=== PATIENT | male | born 1930 | race Caucasian/White ===

== ENCOUNTER 2017-04-03 09:52 | Observation (INO) ==
[2017-04-03 11:25] LABS: Basophils % 0.2 % (0.0-0.8); Eosinophils # 0.1 10*3/uL (0.0-0.87); Eosinophils % 1.1 % (0.00-10.9); Hematocrit 39.9 VOL% (42.0-52.0); Hemoglobin 13.4 GM/DL (14.0-18.0); Immature Granulocytes % 0.4 %; Immature Granulocytes Absolute 0.02 #; Lymphocytes # 1.2 10*3/uL (1.4-4.0); Lymphocytes % 22.6 % (21.2-54.2); Mean Corpuscular HGB Conc 33.6 GM/DL (32-36); Mean Corpuscular Hemoglobin 33 PG (27-34); Mean Platelet Volume 9.8 FL (9.6-12.0); Monocytes # 0.5 10*3/uL (0.11-0.8); Monocytes % 9.5 % (1.7-12.7); Neutrophils # 3.6 10*3/uL (1.4-7.4); Neutrophils % 66.2 % (38.7-73.9); Platelet Count 118 T/CUMM (130-400); Red Blood Count 4.07 MC/CUMM (3.8-5.5); Red Cell Distribution Width 13.2 % (9.3-17.3); White Blood Count 5.4 T/CUMM (4-12)
[2017-04-03 11:36] LABS: INR 1.1; PT Patient Result 11.3 SECS; Partial Thromboplastin Time 28.8 SECS (0-40)
[2017-04-03 12:01] LABS: Albumin 3.7 G/DL (3.4-5.0); Bilirubin,Total 0.5 MG/DL (0.2-1.0); Calcium 8.8 MG/DL (8.5-10.1); Osmolality,Calculated 275.8 MOS/KG (273-304); Potassium 4.3 MMOL/L (3.5-5.1); Total Protein 6.6 G/DL (6.4-8.3)
[2017-04-03 12:42] LABS: Apearance,Urine CLEAR (Clear); Bilirubin,Urine Negative (Negative); Blood, Urine Negative (Negative); Glucose,Urine (UA) Negative (Negative); Ketones,Urine Negative (Negative); Nitrite,Urine Negative (Negative); Protein,Urine Negative; RBC,Urine 1 /HPF (0-4); Urine Color Yellow (Yellow); Urine Specific Gravity 1.014 (1.001-1.035); Urine Urobilinogen < 2.0 EU/DL (0.2-1.0); WBC,Urine 1 /HPF (0-6)
[2017-04-03 12:48] LABS: Barbiturates Screen,Urine Negative (Negative); Benzodiazepines Screen,Urine Negative (Negative); Cannabinoid Screen,Urine Negative (Negative); Opiate Screen,Urine Negative (Negative); Phencyclidine Screen,Urine Negative (Negative)
[2017-04-03] MEDS ORDERED: DOCUSATE SODIUM 100 MG CAPSULE PO PRN (14:29)
[2017-04-03] MEDS ORDERED: ACETAMINOPHEN 325 MG TABLET PO PRN (14:29)
[2017-04-03] MEDS ORDERED: ONDANSETRON 4 MG/2 ML VIAL IV PRN (14:29)
[2017-04-03] MEDS ORDERED: SODIUM CHLORIDE 0.45% 1,000 ML IV SCH (14:29)
[2017-04-03] MEDS: METOPROLOL SUCCINATE XL 25 MG TABLET PO SCH (15:57)
[2017-04-03] MEDS: ROSUVASTATIN 10 MG TABLET PO SCH (15:57)
[2017-04-03] MEDS: ISOSORBIDE MONONITRATE 60 MG TABLET PO SCH (16:06)
[2017-04-03] MEDS: RANOLAZINE 500 MG TABLET PO SCH ×2 (16:07→21:18)
[2017-04-03 17:14] LABS: Thyroid Stimulating Hormone 5.25 uIU/ml (0.358-3.74)
[2017-04-03 17:57] LABS: Folate 8.6 NG/ML (5.4-24.0)
[2017-04-03] MEDS ORDERED: ENOXAPARIN 40 MG/0.4 ML SYRINGE SUBCUT SCH (21:00)
[2017-04-03] MEDS: MEMANTINE 5 MG TABLET PO SCH (21:18)
[2017-04-04 05:15] LABS: Basophils % 0.2 % (0.0-0.8); Eosinophils # 0.1 10*3/uL (0.0-0.87); Hematocrit 37.1 VOL% (42.0-52.0); Hemoglobin 12.7 GM/DL (14.0-18.0); Immature Granulocytes % 0.7 %; Immature Granulocytes Absolute 0.03 #; Lymphocytes # 1.3 10*3/uL (1.4-4.0); Lymphocytes % 30.5 % (21.2-54.2); Mean Corpuscular HGB Conc 34.2 GM/DL (32-36); Mean Corpuscular Hemoglobin 34 PG (27-34); Mean Corpuscular Volume 97.9 FL (87-102); Mean Platelet Volume 9.9 FL (9.6-12.0); Monocytes # 0.3 10*3/uL (0.11-0.8); Neutrophils # 2.4 10*3/uL (1.4-7.4); Neutrophils % 58.6 % (38.7-73.9); Platelet Count 114 T/CUMM (130-400); Red Blood Count 3.79 MC/CUMM (3.8-5.5); Red Cell Distribution Width 13.2 % (9.3-17.3); White Blood Count 4.1 T/CUMM (4-12)
[2017-04-04] MEDS ORDERED: PANTOPRAZOLE 40 MG TABLET PO SCH (09:00)
[2017-04-04] MEDS ORDERED: CLOPIDOGREL 75 MG TABLET PO SCH (09:00)
[2017-04-04] MEDS ORDERED: ASPIRIN EC 81 MG TABLET PO SCH (09:00)
[2017-04-04] MEDS: ROSUVASTATIN 10 MG TABLET PO SCH (10:04)
[2017-04-04] MEDS: RANOLAZINE 500 MG TABLET PO SCH (10:04)
[2017-04-04] MEDS: MEMANTINE 5 MG TABLET PO SCH (10:05)
[2017-04-04] MEDS: ISOSORBIDE MONONITRATE 60 MG TABLET PO SCH (10:05)
[2017-04-04] MEDS: METOPROLOL SUCCINATE XL 25 MG TABLET PO SCH (10:05)
[2017-04-04 11:11] VITALS: BP 154/74
== END 2017-04-04 14:15 | disposition home health service (06) ==
LOC: N.EDINP 09:52 → N.ED 09:52 → N.EDINP 15:10 → N.5E 15:53
PROVIDERS: ADMIT Internal Medicine; ATTEND Internal Medicine

== ENCOUNTER 2017-06-26 16:06 | Inpatient (IN) ==
[2017-06-26 17:21] LABS: Basophils % 0.2 % (0.0-0.8); Eosinophils % 0.8 % (0.00-10.9); Hematocrit 40.5 VOL% (42.0-52.0); Hemoglobin 13.6 GM/DL (14.0-18.0); Immature Granulocytes % 0.4 %; Immature Granulocytes Absolute 0.02 #; Lymphocytes # 1.1 10*3/uL (1.4-4.0); Lymphocytes % 23.5 % (21.2-54.2); Mean Corpuscular HGB Conc 33.6 GM/DL (32-36); Mean Corpuscular Hemoglobin 33 PG (27-34); Mean Corpuscular Volume 96.7 FL (87-102); Mean Platelet Volume 9.8 FL (9.6-12.0); Monocytes # 0.4 10*3/uL (0.11-0.8); Neutrophils # 3.2 10*3/uL (1.4-7.4); Neutrophils % 66.1 % (38.7-73.9); Platelet Count 120 T/CUMM (130-400); Red Blood Count 4.19 MC/CUMM (3.8-5.5); Red Cell Distribution Width 13.3 % (9.3-17.3); White Blood Count 4.8 T/CUMM (4-12)
[2017-06-26 17:55] LABS: INR 1.1; PT Patient Result 11.5 SECS
[2017-06-26 18:27] LABS: Alanine Aminotransferase 13 U/L (16-61); Albumin 3.7 G/DL (3.4-5.0); Alkaline Phosphatase 57 U/L (45-117); Aspartate Amino Transferase 21 U/L (0-37); Blood Urea Nitrogen 17 MG/DL (7-18); Calcium 8.6 MG/DL (8.5-10.1); Glucose 87 MG/DL (74-106); Osmolality,Calculated 270.1 MOS/KG (273-304); Potassium 4.2 MMOL/L (3.5-5.1); Sodium 135 MMOL/L (136-145); Total Protein 6.6 G/DL (6.4-8.3); Troponin I Only < 0.015 NG/ML (0.00-0.045)
[2017-06-26] MEDS ORDERED: CLOPIDOGREL 300 MG TABLET PO STA (18:40)
[2017-06-26] MEDS ORDERED: CLOPIDOGREL 300 MG TABLET ONE (18:48)
[2017-06-26] MEDS ORDERED: ONDANSETRON 4 MG/2 ML VIAL IV PRN (21:08)
[2017-06-26] MEDS ORDERED: NIFEdipine 10 MG CAPSULE PO PRN (21:08)
[2017-06-26] MEDS: RANOLAZINE 500 MG TABLET PO SCH (22:01)
[2017-06-26] MEDS: MEMANTINE 5 MG TABLET PO SCH (22:01)
[2017-06-26] MEDS: SODIUM CHLORIDE 0.9% 1,000 ML IV SCH (22:01)
[2017-06-27 04:34] LABS: Basophils % 0.4 % (0.0-0.8); Eosinophils # 0.1 10*3/uL (0.0-0.87); Eosinophils % 1.3 % (0.00-10.9); Hematocrit 38.4 VOL% (42.0-52.0); Immature Granulocytes % 0.4 %; Immature Granulocytes Absolute 0.02 #; Lymphocytes # 0.9 10*3/uL (1.4-4.0); Lymphocytes % 20.1 % (21.2-54.2); Mean Corpuscular HGB Conc 33.9 GM/DL (32-36); Mean Corpuscular Hemoglobin 32 PG (27-34); Mean Corpuscular Volume 95.5 FL (87-102); Mean Platelet Volume 9.8 FL (9.6-12.0); Monocytes # 0.4 10*3/uL (0.11-0.8); Monocytes % 9.3 % (1.7-12.7); Neutrophils # 3.1 10*3/uL (1.4-7.4); Neutrophils % 68.5 % (38.7-73.9); Platelet Count 108 T/CUMM (130-400); Red Blood Count 4.02 MC/CUMM (3.8-5.5); Red Cell Distribution Width 13.2 % (9.3-17.3); White Blood Count 4.5 T/CUMM (4-12)
[2017-06-27 05:00] LABS: Calcium 8.2 MG/DL (8.5-10.1); Potassium 3.8 MMOL/L (3.5-5.1)
[2017-06-27] MEDS ORDERED: CLOPIDOGREL 75 MG TABLET PO SCH (09:00)
[2017-06-27] MEDS: METOPROLOL SUCCINATE XL 25 MG TABLET PO SCH (09:32)
[2017-06-27] MEDS: ENOXAPARIN 40 MG/0.4 ML SYRINGE SUBCUT SCH (09:32)
[2017-06-27] MEDS: CYANOCOBALAMIN 500 MCG TABLET PO SCH (09:33)
[2017-06-27] MEDS: PANTOPRAZOLE 40 MG TABLET PO SCH (09:33)
[2017-06-27] MEDS: ISOSORBIDE MONONITRATE 60 MG TABLET PO SCH (09:33)
[2017-06-27] MEDS: MEMANTINE 5 MG TABLET PO SCH ×2 (09:33→21:28)
[2017-06-27] MEDS: RANOLAZINE 500 MG TABLET PO SCH ×2 (09:33→21:28)
[2017-06-27] MEDS ORDERED: ASPIRIN 325 MG TABLET PO SCH (19:44)
[2017-06-27] MEDS: APIXABAN 2.5 MG TABLET PO SCH (21:28)
[2017-06-28] MEDS: APIXABAN 2.5 MG TABLET PO SCH (10:06)
[2017-06-28] MEDS: ENOXAPARIN 40 MG/0.4 ML SYRINGE SUBCUT SCH (10:07)
[2017-06-28] MEDS: MEMANTINE 5 MG TABLET PO SCH (10:07)
[2017-06-28] MEDS: PANTOPRAZOLE 40 MG TABLET PO SCH (10:07)
[2017-06-28] MEDS: ISOSORBIDE MONONITRATE 60 MG TABLET PO SCH (10:07)
[2017-06-28] MEDS: RANOLAZINE 500 MG TABLET PO SCH (10:07)
[2017-06-28] MEDS: CYANOCOBALAMIN 500 MCG TABLET PO SCH (10:08)
[2017-06-28] MEDS: METOPROLOL SUCCINATE XL 25 MG TABLET PO SCH (10:08)
[2017-06-28] MEDS: SODIUM CHLORIDE 0.9% 1,000 ML IV SCH ×2 (10:11→10:12)
[2017-06-28 11:50] VITALS: BP 117/62
== END 2017-06-28 13:41 | disposition home health service (06) | DRG 66 ==
LOC: N.ED 16:06 → N.EDINP 18:45 → N.TELEN 20:37
PROVIDERS: ADMIT Internal Medicine; ATTEND Internal Medicine

== ENCOUNTER 2018-01-12 07:38 | Observation (INO) ==
[2018-01-12] MEDS ORDERED: ASPIRIN 325 MG TABLET PO STA (08:05)
[2018-01-12] MEDS ORDERED: ENOXAPARIN 100 MG/ML SYRINGE SUBCUT STA (08:05)
[2018-01-12] MEDS ORDERED: NITROGLYCERIN 2% OINT 1 INCH/GM PACK TOP STA (08:05)
[2018-01-12 08:12] LABS: Hematocrit 38.9 VOL% (42.0-52.0); Hemoglobin 13.4 GM/DL (14.0-18.0); Immature Granulocytes % 0.5 %; Immature Granulocytes Absolute 0.02 #; Lymphocytes # 0.9 10*3/uL (1.4-4.0); Lymphocytes % 22.9 % (21.2-54.2); Mean Corpuscular HGB Conc 34.4 GM/DL (32-36); Mean Corpuscular Hemoglobin 33 PG (27-34); Mean Corpuscular Volume 96.3 FL (87-102); Mean Platelet Volume 9.3 FL (9.6-12.0); Monocytes # 0.4 10*3/uL (0.11-0.8); Monocytes % 9.6 % (1.7-12.7); Neutrophils # 2.7 10*3/uL (1.4-7.4); Platelet Count 113 T/CUMM (130-400); Red Blood Count 4.04 MC/CUMM (3.8-5.5); Red Cell Distribution Width 12.8 % (9.3-17.3); White Blood Count 4.1 T/CUMM (4-12)
[2018-01-12 08:33] LABS: Albumin 3.5 G/DL (3.4-5.0); Bilirubin,Total 0.6 MG/DL (0.2-1.0); Calcium 8.6 MG/DL (8.5-10.1); Osmolality,Calculated 261.5 MOS/KG (273-304); Total Protein 6.4 G/DL (6.4-8.3)
[2018-01-12 08:40] LABS: INR 1.1; PT Patient Result 11.1 SECS; Partial Thromboplastin Time 32.2 SECS (0-40)
[2018-01-12] MEDS ORDERED: ENOXAPARIN 60 MG/0.6 ML SYRINGE ONE (08:53)
[2018-01-12] MEDS ORDERED: ONDANSETRON 4 MG/2 ML VIAL IV PRN (11:05)
[2018-01-12] MEDS ORDERED: ACETAMINOPHEN 325 MG TABLET PO PRN (11:05)
[2018-01-12] MEDS ORDERED: MORPHINE 4 MG/1 ML VIAL IV PRN (11:05)
[2018-01-12] MEDS ORDERED: ENOXAPARIN 40 MG/0.4 ML SYRINGE SUBCUT SCH (11:30)
[2018-01-12] MEDS ORDERED: NITROGLYCERIN SL 0.4 MG TABLET SL PRN (11:50)
[2018-01-12] MEDS ORDERED: POLYETHYLENE GLYCOL POWDER 17 GM PACK PO PRN (20:53)
[2018-01-12] MEDS: APIXABAN 2.5 MG TABLET PO SCH (21:09)
[2018-01-12] MEDS: RANOLAZINE 500 MG TABLET PO SCH (21:09)
[2018-01-13 05:37] LABS: Basophils % 0.5 % (0.0-0.8); Eosinophils # 0.1 10*3/uL (0.0-0.87); Eosinophils % 1.5 % (0.00-10.9); Hematocrit 39.4 VOL% (42.0-52.0); Hemoglobin 13.1 GM/DL (14.0-18.0); Immature Granulocytes % 1.3 %; Immature Granulocytes Absolute 0.05 #; Lymphocytes # 1.1 10*3/uL (1.4-4.0); Lymphocytes % 28.2 % (21.2-54.2); Mean Corpuscular HGB Conc 33.2 GM/DL (32-36); Mean Corpuscular Hemoglobin 32 PG (27-34); Mean Corpuscular Volume 97.3 FL (87-102); Mean Platelet Volume 9.9 FL (9.6-12.0); Monocytes # 0.4 10*3/uL (0.11-0.8); Monocytes % 9.6 % (1.7-12.7); Neutrophils # 2.3 10*3/uL (1.4-7.4); Neutrophils % 58.9 % (38.7-73.9); Platelet Count 116 T/CUMM (130-400); Red Blood Count 4.05 MC/CUMM (3.8-5.5); Red Cell Distribution Width 12.8 % (9.3-17.3)
[2018-01-13 06:07] LABS: Albumin 3.2 G/DL (3.4-5.0); Bilirubin,Total 0.8 MG/DL (0.2-1.0); Calcium 8.2 MG/DL (8.5-10.1); Osmolality,Calculated 263.4 MOS/KG (273-304); Potassium 3.6 MMOL/L (3.5-5.1); Risk Ratio 4.16; Thyroid Stimulating Hormone 3.53 uIU/ml (0.358-3.74); Total Protein 6.2 G/DL (6.4-8.3); VLDL CHOLESTEROL 25.4 MG/DL
[2018-01-13] MEDS ORDERED: ISOSORBIDE MONONITRATE 60 MG TABLET PO SCH (09:00)
[2018-01-13] MEDS ORDERED: ENOXAPARIN 40 MG/0.4 ML SYRINGE SUBCUT SCH (09:00)
[2018-01-13] MEDS ORDERED: METOPROLOL SUCCINATE XL 25 MG TABLET PO SCH (09:00)
[2018-01-13] MEDS ORDERED: PANTOPRAZOLE 40 MG TABLET PO SCH (09:00)
[2018-01-13] MEDS: RANOLAZINE 500 MG TABLET PO SCH (09:01)
[2018-01-13] MEDS: APIXABAN 2.5 MG TABLET PO SCH (09:01)
[2018-01-13 12:22] VITALS: BP 98/58
== END 2018-01-13 13:54 | disposition home or self-care (01) ==
LOC: N.ED 07:38 → N.EDINP 07:38 → N.TELEN 14:14
PROVIDERS: ADMIT Hospitalist; ATTEND Hospitalist